=== PATIENT | female | born 1955 | race Caucasian/White ===

== ENCOUNTER 2021-05-12 12:11 | Day surgery (SDC) | payer OTHER ==
[~2021-05-12] VITALS: Ht 165.1 cm; Wt 52.7 kg
[~2021-05-12 12:11] MED LIST: ALBU8HFA IH; ALEN10TA33 PO; HYDR200T38 PO; MOME13HF IH; SODIUM CHLORIDE 0.9% 1,000 ML ONE; TIOT185 IH
[2021-05-12] MEDS ORDERED: LIDOCAINE/PF 2% 5 ML VIAL IM ONE (12:12)
[2021-05-12] MEDS ORDERED: PROPOFOL 1% 20 ML VIAL IVP ONE (12:12)
[2021-05-12 12:24] LABS: COVID AG,FIA SOURCE NASOPHARYNGEAL
[2021-05-12] MEDS ORDERED: SODIUM CHLORIDE 0.9% 1,000 ML IV ONE (12:30)
== END 2021-05-12 15:45 | disposition home or self-care (01) ==
LOC: SURGERY 12:11
PROVIDERS: ATTEND Internal Medicine Gastroenterology
DX: K63.5 Polyp of colon (principal); K59.00 Constipation, unspecified; K57.30 Diverticulosis of large intestine without perforation or abscess without bleeding; J44.9 Chronic obstructive pulmonary disease, unspecified; I10 Essential (primary) hypertension; Z88.8 Allergy status to other drugs, medicaments and biological substances; Z98.890 Other specified postprocedural states; Z79.899 Other long term (current) drug therapy
CPT/HCPCS: 45385; 87426; 88305; 93005; C9803; J2704; J3490; J7030